=== PATIENT | female | born 1955 | race American Indian/Alaskan Native ===

== ENCOUNTER 2022-04-14 17:46 | Emergency (ER) | payer SELFPAY ==
--- NOTE | 2022-04-14 18:26 | Emergency Department Report ---
ED Fall HPI - General Chief Complaint: Fall Stated Complaint: FELL IN SNOW Time Seen by Provider: 04/14/22 18:03 Source: patient Mode of arrival: Ambulatory - History of Present Illness Initial Comments: 66 yo F who came with a fall associated with left shoulder and wrist pain and right knee pain after the fall. She reports tripping on something and brace herself with left hand. She also reports abrasion to her lower lip. No other modifying or associated factors reported. MD Complaint: fall - Related Data Allergies Allergy/AdvReac Type Severity Reaction Status Date / Time Penicillins Allergy Hives Verified 04/14/22 19:02 simethicone [From Gas-X] Allergy Hives Verified 04/14/22 19:02 Sulfa (Sulfonamide Allergy Hives Verified 04/14/22 19:02 Antibiotics) ED Review of Systems ROS: Stated complaint: FELL IN SNOW Other details as noted in HPI Comment: All other systems reviewed and negative Musculoskeletal: other (left shoulder and wrist and right knee pain --) ED Physical Exam - General Limitations: No Limitations General appearance: alert, in no apparent distress - Head Head exam: Present: normal inspection - Eye Eye exam: Present: normal appearance Pupils: Present: normal accommodation - ENT ENT exam: Present: normal exam, normal orophraynx, mucous membranes moist - Neck Neck exam: Present: normal inspection, full ROM. Absent: tenderness - Respiratory Respiratory exam: Present: normal lung sounds bilaterally. Absent: respiratory distress, accessory muscle use - Cardiovascular Cardiovascular Exam: Present: regular rate, normal rhythm - GI/Abdominal GI/Abdominal exam: Present: soft, normal bowel sounds. Absent: distended, tenderness - Extremities Exam Extremities exam: Present: normal inspection, tenderness (left shoulder and wrist and right knee tenderness to palpation ), normal capillary refill - Back Exam Back exam: Present: normal inspection. Absent: tenderness - Neurological Exam Neurological exam: Present: alert, oriented X3 - Psychiatric Psychiatric exam: Present: normal affect, normal mood - Skin Skin exam: Present: warm, normal color ED Course Vital Signs 04/14/22 17:53 Temperature 98.3 F Pulse Rate 86 Respiratory 16 Rate Blood Pressure 180/82 [Left] O2 Sat by Pulse 99 Oximetry ED Medical Decision Making - Medical Decision Making -here with fall with noted -- left shoulder and wrist and right knee tenderness to palpation-- will go ahead and check XR left shoulder and wrist with right knee to rule out fx or dislocation In the meantime will give percocet 5/325 mg PO x 1-- Patient report feeling much better. X-ray of the left chest, left wrist, and right knee noted with no acute findings--patient reassured with topical analgesic Critical care attestation.: If time is entered above; I have spent that time in minutes in the direct care of this critically ill patient, excluding procedure time. ED Disposition Clinical Impression: Wrist pain, left, Right anterior knee pain Fall Qualifiers: Encounter type: initial encounter Qualified Code(s): W19.XXXA - Unspecified fall, initial encounter Left shoulder pain Qualifiers: Chronicity: acute Qualified Code(s): M25.512 - Pain in left shoulder Disposition: 01 HOME / SELF CARE / HOMELESS Is pt being admited?: No Does the pt Need Aspirin: No Condition: Stable Instructions: How to Use Cold Therapy, [id number], Shoulder Pain, [id number], Acute Knee Pain, Adult, Asic-uv-[id number] Additional Instructions: It is okay to apply topical analgesic like Bengay to the area of your pain It is also okay to take Tylenol every 6-8 hours for pain as needed Call and schedule follow-up with your primary doctor in the next 3 to 5 days for progress Please do not hesitate to call or return to emergency room if your symptoms wo rsen Referrals: ESTHELA MARTINEZ MD [Referring] - 3-5 Days
--- NOTE | 2022-04-14 19:23 | XRay Report ---
LEFT SHOULDER 3 VIEW(S) INDICATION / CLINICAL INFORMATION: fall shoulder pain. COMPARISON: None available. FINDINGS: BONES / JOINT(S): No acute fracture or subluxation. Mild degenerative arthrosis left glenohumeral and acromioclavicular joints SOFT TISSUES: No significant abnormality. ADDITIONAL FINDINGS: None. IMPRESSION: 1. No acute findings. Signer Name: Alexander Gerard MD Signed: 04/14/2022 7:18 PM Workstation Name: [id number]
--- NOTE | 2022-04-14 19:23 | XRay Report ---
. RIGHT KNEE 3 VIEW(S) INDICATION / CLINICAL INFORMATION: fall with right knee pain COMPARISON: None available. FINDINGS: BONES / JOINT(S): No acute fracture or subluxation. Moderate tricompartmental degenerative arthrosis SOFT TISSUES: No significant abnormality. ADDITIONAL FINDINGS: None. IMPRESSION: 1. No acute findings. Signer Name: Alexander Gerard MD Signed: 04/14/2022 7:19 PM Workstation Name: [id number]
--- NOTE | 2022-04-14 19:24 | XRay Report ---
LEFT WRIST 2 VIEW(S) INDICATION / CLINICAL INFORMATION: fall with pain COMPARISON: None available. FINDINGS: BONES / JOINT(S): No acute fracture or subluxation. No significant arthritis. SOFT TISSUES: No significant abnormality. ADDITIONAL FINDINGS: None. IMPRESSION: 1. No acute findings. Signer Name: Alexander Gerard MD Signed: 04/14/2022 7:20 PM Workstation Name: [id number]
[2022-04-14] MEDS ORDERED: oxyCODONE /ACETAMINOPHEN 5-325MG TAB PO ONE (20:00)
[2022-04-14 21:55] VITALS: BP 142/77
== END 2022-04-15 17:13 | disposition home or self-care (01) ==
LOC: ED 17:46
DX: M25.512 Pain in left shoulder (principal); M25.532 Pain in left wrist; M25.561 Pain in right knee; W19.XXXA Unspecified fall, initial encounter; Y93.89 Activity, other specified; Y92.89 Other specified places as the place of occurrence of the external cause; Y99.8 Other external cause status
CPT/HCPCS: 99283